=== PATIENT | male | born 1975 ===

== ENCOUNTER 2019-06-15 16:59 | Observation (INO) ==
[2019-06-15] MEDS ORDERED: Ipratropium/Albuterol Neb 3 ML IH ONE (17:23)
[2019-06-15] MEDS ORDERED: methylPREDNISolone 125 MG/2 ML VIAL IVP ONE (17:23)
[2019-06-15] MEDS ORDERED: 0.9 % Sodium Chloride 1,000 ML IVC ONE (17:24)
[2019-06-15 17:47] LABS: Basophils % 0.4 %; Eosinophils # 0.1 K/mcL (0.0-0.6); Eosinophils % 0.5 %; Hematocrit 48.2 % (37.5-50.1); Hemoglobin 15.3 g/dL (12.9-16.9); Immature Granulocytes % 0.3 % (0-4); Lymphocytes # 1.1 K/mcL (0.6-4.6); Lymphocytes % 10.3 %; Mean Corpuscular HGB Conc 31.7 g/dL (31.6-35.5); Mean Corpuscular Hemoglobin 25.4 pg (28.0-33.3); Mean Corpuscular Volume 80.1 fL (83.0-100.0); Mean Platelet Volume 11.2 fL (9.4-12.4); Monocytes # 1.5 K/mcL (0.0-1.3); Monocytes % 14.4 %; Neutrophils # 7.8 K/mcL (1.6-8.9); Platelet Count 263 K/mcL (140-400); Red Blood Count 6.02 M/mcL (4.19-5.50); Red Cell Distribution Width 15.2 % (11.5-14.5); Segmented Neutrophils % 74.1 %; White Blood Count 10.5 K/mcL (4.3-11.1)
[2019-06-15] MEDS: Albuterol 2.5 MG/3 ML NEBULIZER IH SCH ×2 (17:49→17:50)
[2019-06-15 18:05] LABS: BUN/Creatinine Ratio 14 (6-26); Blood Urea Nitrogen 14 mg/dL (6-20); Calcium 9.1 mg/dL (8.6-10.3); Carbon Dioxide 27 mEq/L (23-29); Chloride 100 mEq/L (98-107); Glucose 125 mg/dL (70-105); Osmolality,Calculated 278 (280-300); Potassium 3.6 mEq/L (3.5-5.1); Sodium 133 mEq/L (136-145); eGFR For African Americans > 60 (> 60); eGFR For Non-African Americans > 60 (> 60)
[2019-06-15] MEDS ORDERED: Acetaminophen 325 MG TABLET PO ONE (18:44)
[2019-06-15] MEDS ORDERED: Acetaminophen/Butalbital/CaffeineTABLET PO PRN (20:13)
[2019-06-15] MEDS ORDERED: Naloxone 0.4 MG/ML INJ IVP PRN (20:13)
[2019-06-15] MEDS ORDERED: Ibuprofen 400 MG TABLET PO PRN (20:13)
[2019-06-15] MEDS ORDERED: Acetaminophen 325 MG TABLET PO PRN (20:13)
[2019-06-15] MEDS ORDERED: Ondansetron 4 MG/2 ML VIAL IVP PRN (20:13)
[2019-06-15] MEDS ORDERED: Azithromycin 500 MG in 0.9 % Sodium Chloride 250 ML IVPB SCH (21:00)
[2019-06-15] MEDS: Gabapentin 400 MG CAPSULE PO SCH (21:46)
[2019-06-15] MEDS ORDERED: Albuterol 2.5 MG/3 ML NEBULIZER IH PRN (22:00)
[2019-06-16] MEDS: 0.9 % Sodium Chloride 1,000 ML IVC SCH ×2 (00:34→00:35)
[2019-06-16 06:05] LABS: Hematocrit 47.7 % (37.5-50.1); Hemoglobin 14.7 g/dL (12.9-16.9); Mean Corpuscular HGB Conc 30.8 g/dL (31.6-35.5); Mean Corpuscular Volume 81.1 fL (83.0-100.0); Mean Platelet Volume 11.5 fL (9.4-12.4); Platelet Count 287 K/mcL (140-400); Red Blood Count 5.88 M/mcL (4.19-5.50); Red Cell Distribution Width 15.1 % (11.5-14.5); White Blood Count 8.3 K/mcL (4.3-11.1)
[2019-06-16 06:19] LABS: BUN/Creatinine Ratio 18 (6-26); Blood Urea Nitrogen 17 mg/dL (6-20); Calcium 9.1 mg/dL (8.6-10.3); Carbon Dioxide 28 mEq/L (23-29); Chloride 104 mEq/L (98-107); Glucose 193 mg/dL (70-105); Osmolality,Calculated 293 (280-300); Potassium 4.3 mEq/L (3.5-5.1); Sodium 138 mEq/L (136-145); eGFR For African Americans > 60 (> 60); eGFR For Non-African Americans > 60 (> 60)
[2019-06-16 08:58] VITALS: BP 136/84
[2019-06-16] MEDS ORDERED: Hydroxyurea 500 MG CAPSULE PO SCH (09:00)
[2019-06-16] MEDS ORDERED: Aspirin Enteric Coated 81 MG Tablet PO SCH (09:00)
[2019-06-16] MEDS ORDERED: Multivit/Ca/Min/Fe/FA 1 TAB TABLET PO SCH (09:00)
[2019-06-16] MEDS ORDERED: Topiramate 25 MG TABLET PO SCH (09:00)
[2019-06-16] MEDS: Gabapentin 400 MG CAPSULE PO SCH (09:32)
[2019-06-21] MEDS ORDERED: Hydroxyurea 500 MG CAPSULE PO SCH (09:00)
== END 2019-06-16 11:25 | disposition home or self-care (01) ==
LOC: EMEROOGRE 16:59 → INPGRE 16:59
PROVIDERS: ADMIT Family Medicine; ATTEND Family Medicine